=== PATIENT | female | born 1955 | race Hispanic/Latino ===

== ENCOUNTER 2024-06-04 01:46 | Emergency (ER) | payer MEDICARE ==
[~2024-06-04] VITALS: Ht 162.6 cm; Wt 78.5 kg
[~2024-06-04 01:46] MED LIST: LEVO-70 PO; LEVO750T68 PO; METR-172 PO; METR500T PO
[2024-06-04 01:47] VITALS: BP 144/76; PULSE 91; RESP 16; TEMP 97.9
--- NOTE | 2024-06-04 01:52 | NUR ---
UA CUP PROVIDED
--- NOTE | 2024-06-04 01:57 | ERN ---
ED Note History of Present Illness Stated Complaint: ABD PAIN, BLOOD IN URINE Chief Complaint: Abdominal Pain Time Seen by MD: 01:49 Time Seen by Midlevel: 01:50 Dictation: Ms Jasso is a 68 year old female with history of diverticulitis and obesity who presented to the Emergency Department this morning for evaluation of abdominal pain. She states that 3 days ago she developed left sided abdominal pain so she started taking old prescriptions for Flagyl and "an antibiotic". She states that the pain persists and last evening she noted blood in her urine. She denies having any fever, chills, shortness of breath, cough, chest pain, palpitations, hematemesis, melena, hematochezia, diarrhea, constipation, headache, or dizziness. Allergies: Coded Allergies: No Known Allergies (Verified Allergy, Unknown, 09/01/18) Home Meds Active Scripts Metronidazole (Metronidazole) 500 Mg Tablet, 1 TAB PO BID for 7 Days, #14 TAB 0 Refills Prov:MAVERICK SHAH MD 06/04/24 Levofloxacin (Levaquin 750Mg Tabs) 750 Mg Tablet, 750 MG PO DAILY for 7 Days, #7 TAB Prov:MAVERICK SHAH MD 06/04/24 Metronidazole (Metronidazole) 500 Mg Tablet, 500 MG PO TID for 7 Days, TAB Prov:ELIA HAMMOND NP 12/06/18 Levofloxacin (Levofloxacin) 500 Mg Tablet, 500 MG PO DAILY for 7 Days, TAB Prov:ELIA HAMMOND NP 12/06/18 Levofloxacin (Levaquin 750Mg Tabs) 750 Mg Tablet, 750 MG PO DAILY for 7 Days, #7 TAB 0 Refills Prov:TANIA LEVINE 09/04/18 Metronidazole (Flagyl) 500 Mg Tablet, 500 MG PO Q6H for 7 Days, #28 TAB 0 Refills Prov:TANIA LEVINE 09/04/18 Past Medical History PSYCH History: no pertinent psych hx Social History: Negative History: Not Applicable RN Note Reviewed/Agreed w/PFSH: Yes Review of System Dictation REVIEW OF SYSTEMS: CONSTITUTIONAL: Patient denies fevers, chills, sweats and weight changes. EYES: Patient denies any visual symptoms. EARS, NOSE, AND THROAT: No difficulties with hearing. No symptoms of rhinitis or sore throat. CARDIOVASCULAR: Patient denies chest pains, palpitations, orthopnea and paroxysmal nocturnal dyspnea. RESPIRATORY: No dyspnea on exertion, no wheezing or cough. GI: No nausea, vomiting, diarrhea, constipation, hematemesis, hematochezia or melena. Reports history of diverticulitis. Reports left-sided abdominal pain times three days. States she has been taking an old prescription that she had for an antibiotic and Flagyl. : No urinary hesitancy or dribbling. No nocturia or urinary frequency. No ab normal urethral discharge. Reports blood in the urine MUSCULOSKELETAL: No myalgias or arthralgias. NEUROLOGIC: No chronic headaches, no seizures. Patient denies numbness, tingling or weakness. PSYCHIATRIC: Patient denies problems with mood disturbance. No problems with anxiety. ENDOCRINE: No excessive urination or excessive thirst. DERMATOLOGIC: Patient denies any rashes or skin changes. Initial Vital Sign VS Vital Signs Date Time Temp Pulse Resp B/P (MAP) Pulse Ox O2 Delivery O2 Flow Rate FiO2 06/04/24 01:47 97.9 91 16 144/76 99 Room Air Physical Exam Dictation Vital signs: Reviewed. Afebrile Constitutional: No acute distress. Non-toxic appearing. Head/Face: Normocephalic, atraumatic. Eyes: Periorbital areas with no swelling, redness, or edema. Lids and lashes are normal. Conjunctival injection is absent. Sclera anicteric. Pupils equal, round, reactive to light. ENT: Pinnas intact and no signs of trauma or erythema. Ear canals clear and no discharge. TMs no erythema. No nasal discharge or bleeding noted. Oropharynx wit h no exudate, redness, swelling, masses, exudates, or evidence of obstruction. Uvula midline. Mucous membranes moist. Neck: Trachea midline, no masses palpated, and no cervical lymphadenopathy. No swelling. Supple, full range of motion. Chest/Axilla: No tenderness, no crepitus, no paradoxical movement, no retractions. Cardiovascular: Regular rate, regular rhythm, no murmur, no gallops. Symmetric pulses. No peripheral edema. Respiratory: Respirations even and unlabored. Lung sounds clear; no wheezes, ra les or rhonchi. Gastrointestinal: Obese.. No distention is appreciated. Bowel sounds are normal. No mass or organomegaly . There is tenderness to LUQ and LLQ. No rebound. No rigidity. No voluntary or involuntary guarding. No Matthew's sign. : Negative CVA tenderness bilaterally. Neurological: Normal speech, gross motor function intact, gross sensory function intact. No focal weakness/Paresthesia. Musculoskeletal/Extremities: All extremities have full range of motion, no pain or tenderness on palpation. Symmetric pulses. Integumentary: Intact. Skin is normal color, warm and dry. Cap refill less than 3 seconds. Results (Laboratory/Radiology) Laboratory/Radiology Laboratory Tests Test 06/04/24 02:37 06/04/24 02:47 White Blood Count 10.3 K/uL (4.8-10.8) Red Blood Count 4.45 MIL/uL (4.00-5.50) Hemoglobin 13.8 g/dL (12.0-16.0) Hematocrit 40.6 % (36-48) Mean Corpuscular Volume 91.2 fL (79-99) Mean Corpuscular Hemoglobin 31.0 pg (27.0-33.0) Mean Corpuscular Hemoglobin Concent 34.0 g/dL (32.0-36.0) Red Cell Distribution Width 13.5 % (11.0-15.5) Platelet Count 346 K/uL (130-400) Mean Platelet Volume 10.4 fL (7.5-10.5) Immature Granulocyte % (Auto) 0.2 % (0-1) Neutrophils (%) (Auto) 77.1 % (40.0-77.0) H Lymphocytes (%) (Auto) 12.5 % (21.0-51.0) L Monocytes (%) (Auto) 7.9 % (3.0-13.0) Eosinophils (%) (Auto) 1.9 % (0.0-8.0) Basophils (%) (Auto) 0.4 % (0.0-5.0) Neutrophils # (Auto) 8.0 K/uL (1.8-7.7) H Lymphocytes # (Auto) 1.3 K/uL (1.0-4.8) Monocytes # (Auto) 0.8 K/uL (0.1-1.0) Eosinophils # (Auto) 0.20 K/uL (0.00-0.70) Basophils # (Auto) 0.04 K/uL (0.00-0.20) Absolute Immature Granulocyte (auto 0.02 K/uL (0-1) Nucleated Red Blood Cells 0.0 % (0.0-0.19) Sodium Level 141 mmol/L (136-145) Potassium Level 4.2 mmol/L (3.5-5.1) Chloride Level 106 mmol/L (101-111) Carbon Dioxide Level 27 mmol/L (21-32) Blood Urea Nitrogen 9 mg/dL (7-18) Creatinine 0.8 mg/dL (0.5-1.0) Glomerular Filtration Rate Calc 81 mL/min (>90) Random Glucose 125 mg/dL (70-105) H Total Calcium 9.0 mg/dL (8.5-10.1) Total Bilirubin 0.5 mg/dL (0.2-1.0) Aspartate Amino Transf (AST/SGOT) 18 U/L (10-37) Alanine Aminotransferase (ALT/SGPT) 29 U/L (12-78) Alkaline Phosphatase 85 U/L (50-136) Total Protein 7.1 g/dL (6.0-8.3) Albumin 3.4 g/dL (3.5-5.0) L Lipase 18 U/L (16-77) Urine Color YELLOW (YELLOW) Urine Appearance CLEAR (CLEAR) Urine pH 5.5 (5.0-8.0) Urine Specific Ripley 1.033 (1.001-1.031) Urine Protein 50 mg/dL (NEGATIVE) H Urine Glucose (UA) NEGATIVE mg/dL (NEGATIVE) Urine Ketones 40 mg/dL (NEGATIVE) H Urine Occult Blood NEGATIVE (NEGATIVE) Urine Nitrate NEGATIVE (NEGATIVE) Urine Bilirubin NEGATIVE mg/dL (NEGATIVE) Urine Urobilinogen 0.2 mg/dL (0.2-1.0) Urine Leukocyte Esterase 75 Sparkle/uL (NEGATIVE) H Urine RBC 2-5 /HPF (0-1) H Urine WBC 2-5 /HPF (0-1) H Urine Squamous Epithelial Cells Rare /HPF (0-2) Urine Bacteria None Seen /HPF (None Seen) CT Scan Comment: CT ABDOMEN AND PELVIS-SIGMOID DIVERTICULITIS, DEGREE OF INFLAMMATION MILD, NO ABSCESS OR FREE AIR, ED Course ED Course Orders Procedure Category Date Status Time Lipase LAB 06/04/24 Complete 01:57 Cbc With Differential LAB 06/04/24 Complete 01:57 Comprehensive LAB 06/04/24 Complete Metabolic Panel 01:57 Urinalysis Profile LAB 06/04/24 Complete 01:57 0.9%Nacl 1000ml (Ns PHA 06/04/24 Complete 1000ml) 03:30 Ketorolac PHA 06/04/24 Complete Tromethamine 30mg/Ml 03:30 Culture Urine DL 06/04/24 In Process 03:17 Ct Abdomen/Pelvis W/O CT 06/04/24 Taken Contrast 03:01 Zosyn 3.375gm+Ns 50ml PHA 06/04/24 Complete (Zosyn 3.375gm+Ns 04:30 Zosyn 3.375gm+Ns 50ml PHA 06/04/24 Complete (Zosyn 3.375gm+Ns 04:17 Current Medications Medications (Trade) Dose Ordered Sig/Esmer Route PRN Reason Start Time Stop Time Status Last Admin Dose Admin Ketorolac Tromethamine (toRADol) 30 mg ONCE ONCE IVP 06/04/24 03:30 06/04/24 03:31 DC 06/04/24 04:23 Piperacillin Sod/ Tazobactam Sod 50 ml @ As Directed STK-MED ONCE .ROUTE 06/04/24 04:17 06/04/24 04:17 DC Piperacillin Sod/ Tazobactam Sod (Zosyn 3.375gm+NS 50ml) 3.375 gm ONCE ONCE IV 06/04/24 04:30 06/04/24 04:31 DC 06/04/24 04:23 Sodium Chloride 1,000 ml @ 0 mls/hr ONCE ONCE IV 06/04/24 03:30 06/04/24 03:31 DC 06/04/24 04:23 Vital Signs Date Time Temp Pulse Resp B/P (MAP) Pulse Ox O2 Delivery O2 Flow Rate FiO2 06/04/24 01:47 97.9 91 16 144/76 99 Room Air Medical Decision Making MDM MDM: DIFFERENTIAL DIAGNOSIS: DIVERTICULITIS, ABDOMINAL PAIN, PATIENT IS A 68-YEAR-OLD FEMALE COMING IN TO BE EVALUATED FOR LOWER ABDOMINAL PAIN. ON PHYSICAL EXAM THERE IS TENDERNESS TO LEFT LEFT QUADRANT AREA. CT DISCLOSE DIVERTICULITIS OF SIGMOID AREA. LABORATORY WORKUP NEGATIVE FOR ACUTE FINDINGS. PATIENT WILL BE DISCHARGED WITH A DIAGNOSIS OF DIVERTICULITIS ANTIBIOTICS WERE GIVEN IN ER AND WILL BE PRESCRIBED ORAL ANTIBIOTICS FOR ONGOING MANAGEMENT. I ADVISED HER APPROPRIATE FOLLOW UP WITH PCP IN 1-2 DAYS. DX & DISP Disposition: Discharge Departure Impression: Primary Impression: Sigmoid diverticulitis Condition: Stable Scripts Metronidazole (Metronidazole) 500 Mg Tablet 1 TAB PO BID for 7 Days, #14 TAB 0 Refills Prov: MAVERICK SHAH MD 06/04/24 Levofloxacin (Levaquin 750Mg Tabs) 750 Mg Tablet 750 MG PO DAILY for 7 Days, #7 TAB Prov: MAVERICK SHAH MD 06/04/24 Additional Instructions: FOLLOW-UP WITH PRIMARY CARE PROVIDER IN 1 TO 2 DAYS. TAKE MEDICATIONS DIRECTED HERE IN THE EMERGENCY ROOM. OKAY TO CONTINUE HOME MEDICATIONS UNLESS OTHERWISE DISCUSSED DURING YOUR VISIT IN THE EMERGENCY ROOM TODAY. RETURN TO YOUR NEAREST EMERGENCY ROOM IF SYMPTOMS WORSEN OR IF THERE IS NO IMPROVEMENT. CALL 911 IF YOU NEED IMMEDIATE ASSISTANCE. TAKE TYLENOL [id number] NEEDED AND IF NO CONTRAINDICATIONS ARE PRESENT. INCREASE ORAL HYDRATION. A WOUND CULTURE OR URINE CULTURE WAS ORDERED HERE IN THE EMERGENCY ROOM DEPARTMENT PLEASE FOLLOW-UP WITH PRIMARY CARE PROVIDER AND ADVISE THEM TO GET REPEAT PORTS FROM OUR FACILITY. IF YOU HAD ANY REFUGIO WRAP/SPLINTS THAT WERE APPLIED HERE, PLEASE DO NOT REMOVE THEM UNTIL YOU SEE YOUR PRIMARY CARE OR SPECIALTY. REFERRALS: Referrals: HILTON NEAL (PCP) Time of Disposition: 04:23 BRADLEY ANGLIN NP Jun 04, 2024 01:57 MAVERICK SHAH MD Jun 04, 2024 04:27
[2024-06-04 02:40] LABS: BASOPHILS # (AUTO) 0.04 K/uL (0.00-0.20); BASOPHILS % (AUTO) 0.4 % (0.0-5.0); EOSINOPHILS % (AUTO) 1.9 % (0.0-8.0); HEMATOCRIT 40.6 % (36-48); IMMATURE GRANULOCYTE ABSOLUTE 0.02 K/uL (0-1); LYMPHOCYTES # (AUTO) 1.3 K/uL (1.0-4.8); LYMPHOCYTES % (AUTO) 12.5 % (21.0-51.0); MEAN CORPUSCULAR VOLUME 91.2 fL (79-99); MONOCYTES # (AUTO) 0.8 K/uL (0.1-1.0); MONOCYTES % (AUTO) 7.9 % (3.0-13.0); NEUTROPHILS % (AUTO) 77.1 % (40.0-77.0); PLATELET COUNT (AUTO) 346 K/uL (130-400); RED BLOOD CELL COUNT(AUTO) 4.45 MIL/uL (4.00-5.50); RED CELL DISTRIBUTION WIDTH 13.5 % (11.0-15.5); WHITE BLOOD COUNT (AUTO) 10.3 K/uL (4.8-10.8)
[2024-06-04 02:59] LABS: ALBUMIN 3.4 g/dL (3.5-5.0); BILIRUBIN,TOTAL 0.5 mg/dL (0.2-1.0); CREATININE 0.8 mg/dL (0.5-1.0); POTASSIUM 4.2 mmol/L (3.5-5.1); TOTAL PROTEIN, SERUM 7.1 g/dL (6.0-8.3)
[2024-06-04 03:01] LABS: APPEARANCE,URINE CLEAR (CLEAR); BILIRUBIN,URINE NEGATIVE (NEGATIVE); COLOR,URINE YELLOW (YELLOW); GLUCOSE, URINE (UA) NEGATIVE (NEGATIVE); KETONES,URINE 40 mg/dL (NEGATIVE); LEUKOCYTE ESTERASE ,URINE 75 Leu/uL (NEGATIVE); NITRATE,URINE NEGATIVE (NEGATIVE); OCCULT BLOOD,URINE NEGATIVE (NEGATIVE); PH,URINE 5.5 (5.0-8.0); PROTEIN,URINE 50 mg/dL (NEGATIVE); UROBILINOGEN,URINE 0.2 mg/dL (0.2-1.0)
[2024-06-04 03:16] LABS: ADD UA MICROSCOPIC YES
[2024-06-04 03:20] LABS: BACTERIA,URINE None Seen /HPF (None Seen); MUCUS,URINE Rare LPF (None Seen); SQUAMOUS EPITHELIAL CELL,UR Rare /HPF (0-2)
[2024-06-04] MEDS: ZOSYN 3.375GM +NS 50ML IV ONE (04:23)
[2024-06-04] MEDS: ZOSYN 3.375GM+NS 50ML 50 ML ONE (04:23)
[2024-06-04] MEDS: ketOROlac 30MG VIAL (30MG/ML) IVP ONE (04:23)
[2024-06-04] MEDS: 0.9%NACL 1000ML 1,000 ML IV ONE (04:23)
[2024-06-04] MEDS ORDERED: LEVO750T68 PO (04:25)
[2024-06-04] MEDS ORDERED: METR-172 PO (04:25)
--- NOTE | 2024-06-04 08:42 | HMCIMG ---
CT ABDOMEN/PELVIS W/O CONTRAST REASON: llq pain COMPARISON: 09/01/2018 FINDINGS: Lung bases are clear. There are no focal liver lesions. There are normal-appearing kidneys.. Spleen and pancreas appear unremarkable. The gallbladder appears normal as well. There is moderate diverticulosis of the descending and sigmoid colon. There is focal inflammation adjacent to the proximal sigmoid colon consistent with early or mild diverticulitis. There is no evidence of abscess or perforation. There are scattered diverticula throughout the remainder of the colon. Bowel loops appear otherwise unremarkable. This includes normal appearance of the appendix There is no evidence of free fluid or intraperitoneal air. There are no focal fluid collections. Aorta and retroperitoneum appear normal as do pelvic soft tissue structures. The anterior abdominal wall is intact. Osseous structures appear unremarkable. IMPRESSION: 1. Diverticulitis of the proximal sigmoid colon, mild in degree, no evidence of perforation or abscess. 2. Otherwise unremarkable exam. CT was performed with one or more following dose reduction techniques: automated exposure control, adjustment of the mA and kv according to patient's size, or use of a iterative reconstruction technique.
== END 2024-06-04 06:28 | disposition home or self-care (01) ==
LOC: EDH 01:46
DX: K57.32 Diverticulitis of large intestine without perforation or abscess without bleeding (principal); Z79.899 Other long term (current) drug therapy
CPT/HCPCS: 99285; 74176; 96374; 96375; 80053; 83690; 85025; 87086; 81001; 36415; J1885; J7030; J2543